=== PATIENT | female | born 1965 | race Caucasian/White ===

== ENCOUNTER 2016-10-30 20:27 | Emergency (ER) | payer SELFPAY ==
[~2016-10-30 20:27] MED LIST: ADDERALL20 MG PO; FLEX PO; FLEXERIL5 MG PO; NORCO1 TAB PO; PRILO PO; PROAIR HFA INH; PROVHFA INH; SUDAFED 24HR1 TAB PO; SYMBICORT 80/4.1 INH INH; ULTRAM50 PO; VICKS VAPO RUB TOP
[2016-10-30 23:09] LABS: BASOPHILS 0.3 %; BASOPHILS ABSOLUTE 0.03 10/3/uL (0.0-0.16); EOSINOPHILS 3.1 %; EOSINOPHILS ABSOLUTE 0.33 10/3/uL (0.0-0.53); ER CBC TAT 0 Hrs 05 Mins; HEMATOCRIT 40.5 % (36.0-48.0); HEMOGLOBIN 12.9 g/dL (12.0-16.0); IMMATURE GRANULOCYTES 0.3 %; IMMATURE GRANULOCYTES ABSOLUTE 0.03 10/3/uL (0.0-0.11); LYMPHOCYTES 25.1 %; LYMPHOCYTES ABSOLUTE 2.66 10/3/uL (0.67-4.30); MEAN CORPUS HGB CONC 31.9 g/dL (32.0-36.0); MEAN CORPUSCULAR HEMOGLOB 26.5 pg (26.0-34.0); MEAN PLATELET VOLUME 10.2 fL (9.2-13.0); MONOCYTES 8.4 %; MONOCYTES ABSOLUTE 0.89 10/3/uL (0.21-1.20); NEUTROPHILS 62.8 %; NEUTROPHILS ABSOLUTE 6.66 10/3/uL (2.02-8.40); PLATELET COUNT 312 10/3/uL (150-400); RBC DISTRIBUTION WIDTH 15.2 % (12.0-16.0); RED CELL COUNT 4.86 10/6/uL (4.0-5.6); WHITE BLOOD CELLS 10.6 10/3/uL (4.5-10.5)
[2016-10-30 23:11] LABS: ASCORBIC ACID (UR NOT ORDER) NEG (NEG); BILIRUBIN, URINE NEGATIVE (NEG); ER URINALYSIS TAT 0 Hrs 00 Mins; KETONE, URINE NEGATIVE (NEG); LEUKOCYTE ESTERASE(NOT OR NEG (NEG); NITRITE (URINE) NEG (NEG); WBC (NOT ORDERED) (RFLEX) 0 (0-5)
[2016-10-30 23:14] LABS: MANUAL DIFF NO %; MEAN CORPUSCULAR VOLUME 83.3 fL (80-100)
[2016-10-30 23:27] LABS: ALBUMIN 3.2 G/DL (3.5-5.0); ALKALINE PHOSPHATASE 88 U/L (45-117); CALCIUM, SERUM 8.2 MG/DL (8.5-10.4); CHLORIDE, SERUM 101 MMOL/L (96-112); CO2 (CARBON DIOXIDE) 32 MMOL/L (24-34); CREATININE 1.34 MG/DL (0.55-1.02); DIRECT BILIRUBIN 0.1 MG/DL (0.0-0.4); GFR AFRICAN AMERICAN 53 ML/MIN (>=60); GFR NON AFRICAN AMERICAN 46 ML/MIN (>=60); GLOBULIN 3.2 G/DL (2.5-4.1); GLUCOSE, SERUM 108 MG/DL (60-99); INDIRECT BILIRUBIN(NOT ORDER) 0.3 MG/DL (0.1-0.9); POTASSIUM, SERUM 3.3 MMOL/L (3.5-5.3); SGOT(AST) 22 U/L (5-40); SGPT(ALT) 39 U/L (5-65); SODIUM, SERUM 141 MMOL/L (135-148); TOTAL PROTEIN 6.4 G/DL (6.0-8.5); TROPONIN I 0.03 NG/ML (<0.05)
[2016-10-30 23:28] LABS: BUN (BLOOD UREA NITROGEN) 19 MG/DL (6-23); TOTAL BILIRUBIN 0.4 MG/DL (0-1.2)
== END 2016-10-31 02:58 | disposition home or self-care (01) ==
LOC: ER 20:27
PROVIDERS: Nurse Practitioner
DX: R60.0 Localized edema (principal); R10.9 Unspecified abdominal pain; E87.6 Hypokalemia; F19.10 Other psychoactive substance abuse, uncomplicated; J45.909 Unspecified asthma, uncomplicated; I10 Essential (primary) hypertension; K21.9 Gastro-esophageal reflux disease without esophagitis; F17.200 Nicotine dependence, unspecified, uncomplicated; Z87.01 Personal history of pneumonia (recurrent); Z88.5 Allergy status to narcotic agent; Z79.899 Other long term (current) drug therapy
CPT/HCPCS: 80053; 81001; 82248; 83690; 84484; 84703; 85025; 93005; 93971; 99285

== ENCOUNTER 2016-11-14 15:03 | Emergency (ER) | payer SELFPAY ==
[2016-11-14 13:36] LABS: BASOPHILS 0.3 %; BASOPHILS ABSOLUTE 0.04 10/3/uL (0.0-0.16); EOSINOPHILS ABSOLUTE 0.24 10/3/uL (0.0-0.53); ER CBC TAT 0 Hrs 05 Mins; HEMATOCRIT 39.6 % (36.0-48.0); HEMOGLOBIN 12.4 g/dL (12.0-16.0); IMMATURE GRANULOCYTES 0.3 %; IMMATURE GRANULOCYTES ABSOLUTE 0.04 10/3/uL (0.0-0.11); LYMPHOCYTES 19.1 %; LYMPHOCYTES ABSOLUTE 2.28 10/3/uL (0.67-4.30); MEAN CORPUS HGB CONC 31.3 g/dL (32.0-36.0); MEAN CORPUSCULAR HEMOGLOB 26.8 pg (26.0-34.0); MEAN CORPUSCULAR VOLUME 85.5 fL (80-100); MEAN PLATELET VOLUME 10.2 fL (9.2-13.0); MONOCYTES 9.1 %; MONOCYTES ABSOLUTE 1.09 10/3/uL (0.21-1.20); NEUTROPHILS 69.2 %; NEUTROPHILS ABSOLUTE 8.25 10/3/uL (2.02-8.40); PLATELET COUNT 297 10/3/uL (150-400); RED CELL COUNT 4.63 10/6/uL (4.0-5.6); WHITE BLOOD CELLS 11.9 10/3/uL (4.5-10.5)
[2016-11-14 13:38] LABS: MANUAL DIFF NO %
[2016-11-14 13:44] LABS: INTERNATIONAL NORMAL RATI 1.2 UNITS (-); PARTIAL THROMBO TIME 31.3 SEC (22.5-37.2); PROTIME (NOT ORD) 14.7 SEC (12.0-14.5)
[2016-11-14 13:54] LABS: BUN (BLOOD UREA NITROGEN) 12 MG/DL (6-23); CALCIUM, SERUM 8.8 MG/DL (8.5-10.4); CHEST PAIN PROFILE TAT 0 Hrs 23 Mins; CHLORIDE, SERUM 104 MMOL/L (96-112); CO2 (CARBON DIOXIDE) 27 MMOL/L (24-34); CREATININE 1.24 MG/DL (0.55-1.02); GFR AFRICAN AMERICAN 58 ML/MIN (>=60); GFR NON AFRICAN AMERICAN 50 ML/MIN (>=60); GLUCOSE, SERUM 98 MG/DL (60-99); POTASSIUM, SERUM 4.4 MMOL/L (3.5-5.3); SODIUM, SERUM 138 MMOL/L (135-148); TROPONIN I <0.02 NG/ML (<0.05)
== END 2016-11-14 18:17 | disposition home or self-care (01) ==
LOC: ER 15:03
PROVIDERS: Emergency Medicine
DX: L03.115 Cellulitis of right lower limb (principal); R07.89 Other chest pain; E87.70 Fluid overload, unspecified; J45.909 Unspecified asthma, uncomplicated; I10 Essential (primary) hypertension; K21.9 Gastro-esophageal reflux disease without esophagitis; F32.9 Major depressive disorder, single episode, unspecified; F41.9 Anxiety disorder, unspecified; F17.200 Nicotine dependence, unspecified, uncomplicated; Z87.01 Personal history of pneumonia (recurrent); Z88.5 Allergy status to narcotic agent; Z79.899 Other long term (current) drug therapy
CPT/HCPCS: 71020; 80048; 83735; 83880; 84484; 85025; 85610; 85730; 93005; 93971; 96374; 96375; 99285; A9270-GY; J1170; J1940; J2405

== ENCOUNTER 2016-12-09 04:44 | Inpatient (IN) | payer SELFPAY ==
--- NOTE | ~2016-12-09 | HP ---
History And Physical [address] [address] NAME: KARINE GARCIA : 63 STATUS : ADM IN [facility]#: [id number] AGE: 50 ADM/REG DATE : 12/09/16 MR#: [id number] REPORT SERV DATE: 12/09/16 DICTATED BY: BILL CARTER DATE: 12/09/16 REPORT STATUS : Draft TRANSCRIBED BY: MODL DATE: 12/09/16 DATE OF ADMISSION: 12/09/2016 CHIEF COMPLAINT: Shortness of breath. HISTORY OF PRESENT ILLNESS: This is a 50-year-old lady with history of asthma and smoking, obstructive sleep apnea, amongst many other medical conditions, presenting with shortness of breath. The patient reports that she has not been feeling well over the past two to three days. The patient's main complaints are of dyspnea and insomnia. The patient does admit to orthopnea and bilateral lower extremity edema. The patient does not think that she particularly gained weight, however. The patient otherwise did not have any fevers or chills, cough. The patient also denies any nausea, vomiting, or diarrhea. The patient does report occasional chest pains with dyspnea. The patient decided to come to the ER for further evaluation and care. In the ER, patient was found to be afebrile and hemodynamically stable. The patient was found to be quite hypertensive with blood pressures in the 180s over 110s. The patient was also tachycardic with heart rate in the 110s. The patient was otherwise able to maintain adequate oxygen saturations of 93% on 2 L of oxygen, and patient did come down quite a bit after oxygen administration. Initial lab evaluation was all fairly benign except for an elevated BNP level of 1321. Chest x-ray showed borderline cardiomegaly and urine drug screen showed a positive amphetamines and opiates. Internal Medicine consultation was requested for admission of patient for further evaluation and care. REVIEW OF SYSTEMS: The patient denies any fevers or chills. The patient also denies any use of illicit drugs. Also 14-point review of systems reviewed and negative other than mentioned above. MEDICATIONS: The list is still pending at this time. PAST MEDICAL HISTORY: 1. ADHD for which patient is not taking any prescription medications anymore. 2. Asthma. 3. Degenerative disk disease. 4. GERD. 5. Obstructive sleep apnea, not on CPAP. 6. The patient does not use any home oxygen. PAST SURGICAL HISTORY: C-sections x2. FAMILY HISTORY: 1. Congestive heart failure. 2. Diabetes type 2. 3. Heart diseases. SOCIAL HISTORY: The patient does smoke about half a pack per day. The patient denies use of History And Physical [address] [address] NAME: KARINE GARCIA : 63 STATUS : ADM IN [facility]#: [id number] AGE: 50 ADM/REG DATE : 12/09/16 MR#: [id number] REPORT SERV DATE: 12/09/16 DICTATED BY: BILL CARTER DATE: 12/09/16 REPORT STATUS : Draft TRANSCRIBED BY: JOES A DATE: 12/09/16 any marijuana or any other illicit drugs, however, the patient's urine drug screen is positive for amphetamines and opiates. I will need to review her home medication list as the patient is denying any illicit drug use. The patient lives at home with her , who is at bedside here in the ER. PHYSICAL EXAMINATION: VITAL SIGNS: Temperature 97.9, blood pressure 185/110, pulse 115, respiratory rate is 34, saturating 93% on 2 L of oxygen. NEURO: Patient is alert and oriented x3 with no focal neurologic deficits. GENERAL: Patient is awake, does not appear to be in acute distress, and she is cooperative. NECK: No JVD. No lymphadenopathy. Normal thyroid. CHEST: No midline sternotomy scar and no tenderness to palpation. LUNGS: Actually quite clear to auscultation bilaterally, and she has fairly normal respiratory effort on 2 L of oxygen per nasal cannula. CARDIOVASCULAR: The patient is slightly tachycardic, but otherwise, no murmurs, rubs, or gallops, and PMI is nondisplaced. ABDOMEN: Soft, nontender with active bowel sounds, and no organomegaly. EXTREMITIES: No edema. Normal distal pulses. No calf tenderness. SKIN: Clean, dry, warm, and intact. LABORATORY DATA: Sodium is 140, potassium 3.3, chloride 104, BUN 14, creatinine 1.12, glucose 139, calcium 8.6. LFTs are within normal limits. White blood cell count is 11.8, hemoglobin 13.1, platelets 184. Troponin is 0.03. BNP is 1321.2. Chest x-ray is personally interpreted and it shows a borderline cardiomegaly. Urine drug screen was positive for amphetamines and opiates. ABG was benign on 2 L of oxygen per nasal cannula. ASSESSMENT: This is a 50-year-old lady with history of asthma, obstructive sleep apnea, amongst many other medical conditions, presenting with a new onset of congestive heart failure. 1. Suspected new onset of congestive heart failure, based on the clinical history as well as elevated BNP level of 1321. 2. Acute hypoxic respiratory failure secondary to above. 3. Polypharmacy as well as smoking, urine drug screen was positive for amphetamines and opiates. 4. Asthma. 5. Obstructive sleep apnea, not on CPAP. 6. Degenerative disk disease. 7. Gastroesophageal reflux disease. PLAN: The plan is to admit the patient under telemetry monitoring. The patient will be given IV Lasix diuresis. In's and out's will be closely monitored as well as daily weights, electrolytes, and renal function. I will go ahead and check an echocardiogram, and I will also check serial troponins as well as a TSH level. The patient will also be given oxygen support and breathing treatments. Given positive amphetamines and her hypertension, I will also treat her with p.r.n. benzos as well as antihypertensives for hypertensive crisis. For the rest of stable past medical conditions, including GERD, degenerative disk disease, et al, I will continue home medications once the medication list becomes available. Otherwise, History And Physical [address] [address] NAME: KARINE GARCIA : 63 STATUS : ADM IN PAT#: [id number] AGE: 50 ADM/REG DATE : 12/09/16 MR#: [id number] REPORT SERV DATE: 12/09/16 DICTATED BY: BILL CARTER DATE: 12/09/16 REPORT STATUS : Draft TRANSCRIBED BY: MODRafael DATE: 12/09/16 the patient was given extensive counseling regarding cessation of smoking as well as against illicit drug use. Standard DVT prophylaxis. The patient is full code at this time. NARGIS/JOSE A Bill Carter MD / [id number] CC: Doug House M.D.
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
[2016-12-09 04:56] LABS: BE (BASE EXCESS) 2.3 MEQ/L (0 +/- 2.5); DEVICE NC; HCO3 (ACTUAL BICARBONATE) 27.1 MEQ/L (23-27); INSTRUMENT SERIAL # 8087; PCO2 (CO2 TENSION) 43 MMHG (35-45); PO2 (O2 TENSION) 80 MMHG (79-93); SAMPLE Arterial; pH 7.42 (7.37-7.43)
[2016-12-09 05:08] LABS: BASOPHILS 0.3 %; BASOPHILS ABSOLUTE 0.03 10/3/uL (0.0-0.16); EOSINOPHILS 1.3 %; EOSINOPHILS ABSOLUTE 0.15 10/3/uL (0.0-0.53); HEMATOCRIT 40.9 % (36.0-48.0); HEMOGLOBIN 13.1 g/dL (12.0-16.0); IMMATURE GRANULOCYTES 0.4 %; IMMATURE GRANULOCYTES ABSOLUTE 0.05 10/3/uL (0.0-0.11); LYMPHOCYTES 16.9 %; LYMPHOCYTES ABSOLUTE 1.99 10/3/uL (0.67-4.30); MEAN CORPUSCULAR HEMOGLOB 26.7 pg (26.0-34.0); MEAN CORPUSCULAR VOLUME 83.3 fL (80-100); MEAN PLATELET VOLUME 9.8 fL (9.2-13.0); MONOCYTES 6.9 %; MONOCYTES ABSOLUTE 0.81 10/3/uL (0.21-1.20); NEUTROPHILS 74.2 %; NEUTROPHILS ABSOLUTE 8.73 10/3/uL (2.02-8.40); RBC DISTRIBUTION WIDTH 15.4 % (12.0-16.0); RED CELL COUNT 4.91 10/6/uL (4.0-5.6); WHITE BLOOD CELLS 11.8 10/3/uL (4.5-10.5)
[2016-12-09 05:09] LABS: ER CBC TAT 0 Hrs 13 MinsNP; MANUAL DIFF NO %; PLATELET COUNT 184 10/3/uL (150-400)
[2016-12-09 05:58] LABS: AMPHETAMINES (NOT ORD) POS (NEG); BARBITURATES (NOT ORDERED NEG (NEG); BENZODIAZEPINES (NOT ORD) NEG (NEG); CANNABINOIDS (THC) NEG (NEG); COCAINE (NOT ORDERED) NEG (NEG); OPIATES POS (NEG); PHENCYCLIDINE(PCP) NEG (NEG)
[2016-12-09 05:58] LABS: ALBUMIN 3.4 G/DL (3.5-5.0); ALKALINE PHOSPHATASE 97 U/L (45-117); BUN (BLOOD UREA NITROGEN) 14 MG/DL (6-23); CALCIUM, SERUM 8.6 MG/DL (8.5-10.4); CHLORIDE, SERUM 104 MMOL/L (96-112); CO2 (CARBON DIOXIDE) 30 MMOL/L (24-34); CREATININE 1.12 MG/DL (0.55-1.02); GFR AFRICAN AMERICAN 66 ML/MIN (>=60); GFR NON AFRICAN AMERICAN 57 ML/MIN (>=60); GLOBULIN 3.3 G/DL (2.5-4.1); SGOT(AST) 27 U/L (5-40); SGPT(ALT) 30 U/L (5-65); SODIUM, SERUM 140 MMOL/L (135-148); TOTAL BILIRUBIN 0.5 MG/DL (0-1.2); TOTAL PROTEIN 6.7 G/DL (6.0-8.5); TROPONIN I 0.03 NG/ML (<0.05)
[2016-12-09 05:59] LABS: TRICYCLICS NEG (NEG)
[2016-12-09 06:02] LABS: GLUCOSE, SERUM 139 MG/DL (60-99); POTASSIUM, SERUM 3.3 MMOL/L (3.5-5.3)
[2016-12-09] MEDS ORDERED: METHOC750B PO (08:29)
[2016-12-09] MEDS ORDERED: PRIN10 PO (08:30)
[2016-12-09] MEDS ORDERED: HYDROCHLOROT12.5 MG PO (08:30)
[2016-12-09 10:55] LABS: TROPONIN I 0.03 NG/ML (<0.05); ULTRASENSITIVE TSH 0.065 MCIU/ML (0.358-3.740)
[2016-12-10 05:02] LABS: BASOPHILS 0.2 %; BASOPHILS ABSOLUTE 0.03 10/3/uL (0.0-0.16); EOSINOPHILS 0.1 %; EOSINOPHILS ABSOLUTE 0.01 10/3/uL (0.0-0.53); HEMATOCRIT 41.3 % (36.0-48.0); IMMATURE GRANULOCYTES 0.3 %; IMMATURE GRANULOCYTES ABSOLUTE 0.04 10/3/uL (0.0-0.11); LYMPHOCYTES ABSOLUTE 3.44 10/3/uL (0.67-4.30); MEAN CORPUS HGB CONC 31.5 g/dL (32.0-36.0); MEAN CORPUSCULAR HEMOGLOB 26.5 pg (26.0-34.0); MEAN CORPUSCULAR VOLUME 84.1 fL (80-100); MEAN PLATELET VOLUME 10.1 fL (9.2-13.0); MONOCYTES 6.4 %; NEUTROPHILS ABSOLUTE 11.15 10/3/uL (2.02-8.40); RBC DISTRIBUTION WIDTH 15.6 % (12.0-16.0); RED CELL COUNT 4.91 10/6/uL (4.0-5.6); WHITE BLOOD CELLS 15.7 10/3/uL (4.5-10.5)
[2016-12-10 05:05] LABS: MANUAL DIFF NO %; PLATELET COUNT 309 10/3/uL (150-400)
[2016-12-10 05:15] LABS: CALCIUM, SERUM 9.3 MG/DL (8.5-10.4); CHLORIDE, SERUM 101 MMOL/L (96-112); CO2 (CARBON DIOXIDE) 32 MMOL/L (24-34); CREATININE 1.43 MG/DL (0.55-1.02); GFR AFRICAN AMERICAN 49 ML/MIN (>=60); GFR NON AFRICAN AMERICAN 42 ML/MIN (>=60); GLUCOSE, SERUM 126 MG/DL (60-99); POTASSIUM, SERUM 3.4 MMOL/L (3.5-5.3); SODIUM, SERUM 140 MMOL/L (135-148)
[2016-12-10 05:16] LABS: BUN (BLOOD UREA NITROGEN) 24 MG/DL (6-23)
[2016-12-10 12:44] LABS: POTASSIUM, SERUM 3.9 MMOL/L (3.5-5.3)
[2016-12-10 15:46] LABS: FREE T4 1.37 NG/DL (0.76-1.46)
[2016-12-11 06:29] LABS: BASOPHILS 0.5 %; BASOPHILS ABSOLUTE 0.06 10/3/uL (0.0-0.16); EOSINOPHILS 3.4 %; HEMATOCRIT 44.3 % (36.0-48.0); HEMOGLOBIN 13.5 g/dL (12.0-16.0); IMMATURE GRANULOCYTES 0.3 %; IMMATURE GRANULOCYTES ABSOLUTE 0.03 10/3/uL (0.0-0.11); LYMPHOCYTES 33.9 %; LYMPHOCYTES ABSOLUTE 3.99 10/3/uL (0.67-4.30); MANUAL DIFF NO %; MEAN CORPUS HGB CONC 30.5 g/dL (32.0-36.0); MEAN CORPUSCULAR HEMOGLOB 26.1 pg (26.0-34.0); MEAN CORPUSCULAR VOLUME 85.5 fL (80-100); MEAN PLATELET VOLUME 10.1 fL (9.2-13.0); MONOCYTES 7.6 %; MONOCYTES ABSOLUTE 0.89 10/3/uL (0.21-1.20); NEUTROPHILS 54.3 %; NEUTROPHILS ABSOLUTE 6.39 10/3/uL (2.02-8.40); PLATELET COUNT 319 10/3/uL (150-400); RBC DISTRIBUTION WIDTH 15.5 % (12.0-16.0); RED CELL COUNT 5.18 10/6/uL (4.0-5.6); WHITE BLOOD CELLS 11.8 10/3/uL (4.5-10.5)
[2016-12-11 06:46] LABS: BUN (BLOOD UREA NITROGEN) 28 MG/DL (6-23); CALCIUM, SERUM 8.7 MG/DL (8.5-10.4); CHLORIDE, SERUM 104 MMOL/L (96-112); CO2 (CARBON DIOXIDE) 31 MMOL/L (24-34); CREATININE 1.15 MG/DL (0.55-1.02); GFR AFRICAN AMERICAN 64 ML/MIN (>=60); GFR NON AFRICAN AMERICAN 55 ML/MIN (>=60); GLUCOSE, SERUM 115 MG/DL (60-99); POTASSIUM, SERUM 4.2 MMOL/L (3.5-5.3); SODIUM, SERUM 138 MMOL/L (135-148)
[2016-12-12 08:43] LABS: BASOPHILS 0.3 %; BASOPHILS ABSOLUTE 0.03 10/3/uL (0.0-0.16); EOSINOPHILS 2.9 %; EOSINOPHILS ABSOLUTE 0.29 10/3/uL (0.0-0.53); HEMATOCRIT 47.7 % (36.0-48.0); HEMOGLOBIN 14.7 g/dL (12.0-16.0); IMMATURE GRANULOCYTES 0.2 %; IMMATURE GRANULOCYTES ABSOLUTE 0.02 10/3/uL (0.0-0.11); LYMPHOCYTES 31.7 %; LYMPHOCYTES ABSOLUTE 3.12 10/3/uL (0.67-4.30); MEAN CORPUS HGB CONC 30.8 g/dL (32.0-36.0); MEAN CORPUSCULAR HEMOGLOB 26.1 pg (26.0-34.0); MEAN CORPUSCULAR VOLUME 84.6 fL (80-100); MEAN PLATELET VOLUME 10.2 fL (9.2-13.0); MONOCYTES ABSOLUTE 0.59 10/3/uL (0.21-1.20); NEUTROPHILS 58.9 %; PLATELET COUNT 295 10/3/uL (150-400); RBC DISTRIBUTION WIDTH 15.2 % (12.0-16.0); RED CELL COUNT 5.64 10/6/uL (4.0-5.6); WHITE BLOOD CELLS 9.9 10/3/uL (4.5-10.5)
[2016-12-12 08:46] LABS: MANUAL DIFF NO %
[2016-12-12 08:54] LABS: CHLORIDE, SERUM 99 MMOL/L (96-112); CREATININE 1.16 MG/DL (0.55-1.02); GFR AFRICAN AMERICAN 63 ML/MIN (>=60); GFR NON AFRICAN AMERICAN 54 ML/MIN (>=60); GLUCOSE, SERUM 137 MG/DL (60-99); POTASSIUM, SERUM 3.7 MMOL/L (3.5-5.3); SODIUM, SERUM 137 MMOL/L (135-148)
[2016-12-12 08:58] LABS: BUN (BLOOD UREA NITROGEN) 21 MG/DL (6-23); CO2 (CARBON DIOXIDE) 37 MMOL/L (24-34)
== END 2016-12-12 11:49 | disposition home or self-care (01) | DRG 291 ==
LOC: ER 04:44 → 1SO 08:03
PROVIDERS: Internal Medicine; Nurse Practitioner Acute Care
DX: I11.0 Hypertensive heart disease with heart failure (principal); J96.01 Acute respiratory failure with hypoxia; J44.1 Chronic obstructive pulmonary disease with (acute) exacerbation; I50.30 Unspecified diastolic (congestive) heart failure; E11.9 Type 2 diabetes mellitus without complications; E66.9 Obesity, unspecified; Z68.35 Body mass index [BMI] 35.0-35.9, adult; E87.6 Hypokalemia; G47.33 Obstructive sleep apnea (adult) (pediatric); K21.9 Gastro-esophageal reflux disease without esophagitis; F17.210 Nicotine dependence, cigarettes, uncomplicated; F90.9 Attention-deficit hyperactivity disorder, unspecified type; M51.36 Other intervertebral disc degeneration, lumbar region; G89.29 Other chronic pain; Z91.14 Patient's other noncompliance with medication regimen; Z79.899 Other long term (current) drug therapy; Z87.01 Personal history of pneumonia (recurrent)
CPT/HCPCS: 36600; 71010; 80048; 80053; 80305; 82805; 83735; 83880; 84132; 84439; 84443; 84484; 85025; 87040; 93005; 93306; 94640; 96374; 96375; 99285; A9270-GY; J0360; J1940; J2405; J2930